=== PATIENT | male | born 1995 | race Caucasian/White ===

== ENCOUNTER 2023-01-23 09:41 | Outpatient (REF) | payer OTHER, SELFPAY ==
[2023-01-23 11:38] LABS: Mean Corpuscular HGB Conc 32.5 g/dl (31.0-36.0); Mean Corpuscular Hemoglobin 28.6 pg (27.0-33.0); Mean Corpuscular Volume 88.1 fL (80.0-98.0); Mean Platelet Volume 11.5 fL (9.4-12.4); Platelet Count 218 X10*3/uL (160-400); Red Blood Count 4.54 X10*6/uL (4.60-5.80); Red Cell Distribution Width 13.1 % (11.0-16.0); White Blood Count 3.8 X10*3/uL (4.8-10.8)
[2023-01-23 11:57] LABS: Anion Gap 11 (12-20); Blood Urea Nitrogen 13 mg/dL (9-16); C Reactive Protein 0.13 mg/dL (< or = 0.50); Calcium 9.3 mg/dL (8.4-10.2); Carbon Dioxide 26 mmol/L (22-29); Chloride 108 mmol/L (96-108); Estimated Glomerular Filt Rate > 60; Glucose Random 83 mg/dL (60-115); Potassium 4.3 mmol/L (3.3-5.1); Sodium 141 mmol/L (135-145)
[2023-01-23 12:22] LABS: Ferritin 63 ng/mL (20-250); TSH reflex Free T4 0.91 uIU/mL (0.32-4.0)
[2023-01-27 07:14] LABS: Immunoglobulin A 475 mg/dL (47-310)
[2023-01-27 09:58] LABS: Transglutaminase IgA <1.0 U/mL
== END 2023-01-23 09:42 | disposition home or self-care (01) ==
LOC: HO.LAB 09:41
PROVIDERS: PCP Nurse Practitioner Family; Visit Provider Internal Medicine
DX: R10.9 Unspecified abdominal pain (principal); R19.4 Change in bowel habit
CPT/HCPCS: 36415; 80048; 82728; 82784; 84443; 85027; 86140; 86364

== ENCOUNTER 2023-02-08 11:51 | Outpatient (REF) | payer OTHER, SELFPAY ==
[2023-02-16 20:38] LABS: Calprotectin, Fecal 203 mcg/g
== END 2023-02-08 11:52 | disposition home or self-care (01) ==
LOC: HO.LNP 11:51
PROVIDERS: Visit Provider Internal Medicine
DX: R19.4 Change in bowel habit (principal)
CPT/HCPCS: 83993

== ENCOUNTER → 2023-02-21 08:58 | Outpatient (BNVA) | payer OTHER, SELFPAY | PROVIDERS: PCP Nurse Practitioner Family; Visit Provider Internal Medicine | DX: R19.4 Change in bowel habit (principal); R10.9 Unspecified abdominal pain | CPT/HCPCS: 99212 ==

== ENCOUNTER 2023-03-16 11:05 | Day surgery (SDC) | payer OTHER, SELFPAY ==
[2023-03-14 15:44] VITALS: BMI 18.9
--- NOTE | 2023-03-16 11:12 | P.CONAN_ITS ---
[facility] Active Problems Active Problems: All Active Problems (Updated 03/14/23 @ 15:43 by Cora Duarte RN) Change in bowel habit (Acute) Abdominal pain (Acute) Past Medical History Medical History Abdominal pain Family history of colon cancer Family History Family History Maternal Uncle Colon cancer Prostate cancer Maternal Grandfather Colon cancer Surgical History Surgical History Surgical history unknown History of Problems with Anesthesia: No Social History Social History Household Members: Family Alcohol intake: current Alcohol intake frequency: holidays/special occasions only Tobacco use type: Cigarette Advance Directives: No Advance Directives Information Provided: Yes Meds Allergies Allergy/AdvReac Type Severity Reaction Status Date / Time No Known Allergies Allergy Verified 03/16/23 11:51 Home Medications Medication Instructions Recorded Confirmed Last Taken Type estradiol 0.1 mg/24 hr semiweekly 1 patch transdermal 2XW 01/23/23 03/16/23 Unknown History transdermal patch spironolactone 50 mg tablet 50 mg PO BID 02/21/23 03/16/23 Unknown History Exam Exam Date and Time: March 16, 2023 1112 Height,Weight and Vital Signs: Height 5 ft 7 in Weight 54.885 kg Assessment and Plan Assessment Anesthesia Assessment: Anesthesia Plan Discussed and Chart Reviewed Final Anesthetic Review History of Problems with Anesthesia: No NPO: Yes ASA Class: II Final Preanesthetic Review: Meds/Allgs Chart Reviewed, Consent Obtained/Reviewed and Anes Risks/Benef Reviewed Patient Risk: Low Procedure Risk: Intermediate Anesthetic Plan Anesthetic Plan: MAC: Disposition: Standard PACU
[2023-03-16 11:59] VITALS: BP 106/85; PULSE 76; RESP 16; TEMP 37.5; O2SAT 99; BMI 18.8
[2023-03-16] MEDS: Sodium Phosphate,Mono-Dibasic 133 ML ENEMA PR (12:05)
[2023-03-16] MEDS: Lactated Ringers 1,000 ML 100 ML IVCONT (12:23)
--- NOTE | 2023-03-16 12:27 | MHC.SHP ---
Pre-Procedural Eval Section A Date of Service: 03/16/23 The History & Physical has been completed within 30 days and I have reviewed it.: Yes Section B Chief Complaint: Noninfective gastroenteritis and colitis, Anemia Allergies: Allergies Allergy/AdvReac Type Severity Reaction Status Date / Time No Known Allergies Allergy Verified 03/16/23 11:51 Plan Diagnosis/Plan: Unchanged I have reviewed the history and physical and performed a pertinent physical examination on my patient. No changes have occurred unless specified. Time Spent With Patient Time: Total time managing care of this patient today ____ minutes.
--- NOTE | 2023-03-16 13:04 | P.OP_ITS ---
Operative Note Operative Note Date of Service: 03/16/23 Narrative: Procedure:?Esophagogastroduodenoscopy and colonoscopy Endoscopist:?Liv Ca MD Indication:?Abnormal CT scan, chronic diarrhea Anesthesia Provider:?Dr Ciera Tapia Anesthesia Type:?MAC Instrument:?Olympus GIF-H190, PCF-H190L EGD Procedure:?? The procedure, indications, preparation and potential complications were reviewed with the patient, who indicated understanding and gave written informed consent to proceed. A physical exam was performed. The endoscope was introduced through the mouth, and advanced to the second part of duodenum. The mucosa was carefully examined on slow withdrawal of the endoscope.? There were no immediate complications.? Patient tolerated the procedure well. EGD Findings:? * Esophagus:? Erosions noted at the GE junction with contact bleeding.?Z-line is at 38 cm. Cold forceps biopsies were taken from middle and lower esophagus rule out eosinophilic esophagitis. * Stomach:? Normal gastric mucosa. Retroflexion performed in the fundus. Pylorus appeared narrow but easily traversable with the scope. Random cold forceps biopsies were taken to rule out H pylori * Duodenum:? Normal duodenal mucosa to the extent visualised.? Cold forceps bio psies were taken to rule out celiac disease. * Colonoscopy Procedure:? The patient was then turned for the colonoscopy. A digital rectal exam was performed which was abnormal for anal fissure.? A distal attachment cap was affixed to the tip of the scope and the colonoscope was then inserted through the anus and advanced through the colon to the cecum at 70 cm and terminal ileum. Appendiceal orifice and ileocecal valve were identified. Mucosa was carefully examined under high definition white light as the instrument was slowly withdrawn in a retrograde panoramic fashion. Retroflexion was performed in rectum. The procedure was not difficult. There were no immediate obvious complications. The quality of the prep was BBPS: 3+2+3 = adequate Withdrawal time: 13 minutes Limitations: No limitation. Findings: Mucosa: Abnormal mucosa with exudates and erythema noted in rectum and distal sigmoid colon. Few aphthous erosions noted in the cecum. Terminal ileum was intubated to 20 cm and appeared normal. Cold forceps biopsies were taken for evaluation. Protruding lesions: * Medium internal hemorrhoids without stigmata of recent bleeding. Impression: 1. Esophagitis (biopsy) 2. Normal stomach (biopsy) 3. Normal duodenum (biopsy) 4. Normal colon and terminal ileum mucosa (biopsy) 5. ? Anal fissure - pt does not report any pain on defecation 6. Internal hemorrhoids Recommendations:?? * Await pathology results.? * Start Omeprazole 20mg once daily x 8 weeks * Resume asymptomatic CRC screening at 45 y.o or earlier if clinically indicated.
[2023-03-16 13:10] VITALS: BP 102/63; PULSE 75; RESP 16; TEMP 36.6; O2SAT 100
[2023-03-16 13:25] VITALS: BP 108/72; PULSE 62; RESP 16; O2SAT 100
[2023-03-16 13:40] VITALS: BP 119/77; PULSE 55; RESP 16; TEMP 36.6; O2SAT 100
== END 2023-03-16 14:58 | disposition home or self-care (01) ==
PROVIDERS: PCP Nurse Practitioner Family; Visit Provider Internal Medicine
PROC: (CPT 45380; principal; 2023-03-16 13:20)
DX: D64.9 Anemia, unspecified (principal); K20.90 Esophagitis, unspecified without bleeding; K60.2 Anal fissure, unspecified; K52.9 Noninfective gastroenteritis and colitis, unspecified; K29.80 Duodenitis without bleeding; K64.8 Other hemorrhoids; F17.210 Nicotine dependence, cigarettes, uncomplicated; Z80.0 Family history of malignant neoplasm of digestive organs; Z79.899 Other long term (current) drug therapy
CPT/HCPCS: 45380; 43239; 88305; 88342

== ENCOUNTER → 2023-03-16 11:05 | Outpatient (BNV) | payer OTHER, SELFPAY | PROVIDERS: PCP Nurse Practitioner Family; Visit Provider Internal Medicine | DX: K52.89 Other specified noninfective gastroenteritis and colitis (principal); R93.3 Abnormal findings on diagnostic imaging of other parts of digestive tract; K22.10 Ulcer of esophagus without bleeding; K64.8 Other hemorrhoids | CPT/HCPCS: 43239; 45380 ==

== ENCOUNTER 2023-05-02 08:28 | Outpatient (REF) | payer OTHER, SELFPAY ==
--- NOTE | ~2023-05-02 | CT_ITS ---
EXAMINATION: CT ENTEROGRAPHY ABDOMEN AND PELVIS WITH CONTRAST CLINICAL INFORMATION: Noninfective gastroenteritis and colitis COMPARISON: None available. TECHNIQUE: Study performed with oral VoLumen (1350 mL) and 480 mL of water to distend the abdomen. The patient was injected with 85 mL Omnipaque 350 intravenous contrast which was administered without adverse effect. Coronal and sagittal reformatted images were obtained at the technologist's workstation. This CT examination was performed using dose optimization techniques as appropriate, variously including the following: *Automated exposure control *Adjustment of mA and/or kV according to patient size (this includes techniques or standardized protocols for targeted exams where dose is matched to indication/reason for exam; i.e. extremities or head) *Use of iterative reconstruction technique DLP: 228 mGy-cm FINDINGS: GASTROINTESTINAL FINDINGS: Stomach: Well-distended and normal in appearance. Small intestine: Satisfactorily distended and normal in appearance. Large intestine: Well-distended and normal in appearance. No perirectal changes demonstrated. The appendix is normal. Additional findings: No abnormal enhancement of the vasa recta or significant mesenteric or retroperitoneal lymphadenopathy is seen. No abdominal abscess or fistulous tract demonstrated. ABDOMINAL AND PELVIC CT FINDINGS: Liver, gallbladder, biliary tract: Within normal limits Pancreas: Within normal limits Spleen: Incidental approximately 11 mm cyst posteriorly subcapsular location. Adrenal glands and kidneys: Within normal limits Ureters and bladder: Within normal limits Lymphovascular structures: Within normal limits Bones: Within normal limits Lung bases: Within normal limits CT/CT enterography IMPRESSION: No evidence for any active inflammatory bowel disease. Incidental splenic cyst.
[2023-05-02] MEDS: iohexoL 350 MG/ML 100 ML INFUS..BTL IV (10:35)
[2023-05-02] MEDS: Sorbitol/Mannit/Xanth Imaging 500 ML LIQUID 1500 ML PO (10:36)
== END 2023-05-02 08:29 | disposition home or self-care (01) ==
LOC: HO.CT 08:28
PROVIDERS: PCP Nurse Practitioner Family; Visit Provider Internal Medicine
DX: K52.9 Noninfective gastroenteritis and colitis, unspecified (principal); D64.9 Anemia, unspecified
CPT/HCPCS: 74177; Q9967

== ENCOUNTER 2023-05-14 11:02 | Outpatient (AMB) | payer OTHER, SELFPAY ==
--- NOTE | 2023-05-14 11:03 | A.OFFVIS_ITS ---
Intake Vital Signs 05/14/23 11:07 Height 5 ft 7 in Weight 123 lb 7.342 oz BMI 19.3 BP 121/74 Blood Pressure Location Lt brachial Position Sitting Pulse 80 Intake Visit Reasons: Discuss GI Concerns Intake Note: Angelica presents in the office as a f/u GI concerns. CC: States that she is still having all these symptoms with nothing coming up on the testing so she would like to know what to do moving forward. 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 01/23/23: Pt was seen in [facility] in November for abdominal pain and bloody diarrhea. Sx started after she had pizza from outside. Developed crampy abdominal pain with diarrhea that had bright red blood. This prompted visit to [facility] where she was noted to have colitis on CT Abd. Has had multiple episodes of abd pain with diarrhea in the past as well but not to this intensity. Occurs at least 3 times a year. Has not had any work up done for this, assumed it was stress related. No changes in appetite, unintentional weight loss. No fam hx of IBD or CRC in first degree relatives. 02/21/23: Labs reviewed with the pt - anemia noted with ferritin in normal range. Also has high fecal karen. celiac serology normal. Currently only complaint is intermittent R sided abdominal discomfort and constipation. No diarrhea, no blood in stool. 03/16/23: EGD/colo 1. Esophagitis (biopsy) 2. Normal stomach (biopsy) 3. Normal duodenum (biopsy) 4. Normal colon and terminal ileum mucos a (biopsy) 5. ? Anal fissure - pt does not report a ny pain on defecation 6. Internal hemorrhoids Path: A. Duodenum, biopsy: Chronic inactive duodenitis. B. Stomach, random, biopsy: Antral-type and oxyntic mucosa with mpderate chronic inactive inflammation; no Helicobacter organisms seen. C. Esophagus, lower, biopsy: Squamous epithelium within normal limits; no inflammation seen; negative for eosinophilic esophagitis. D. Esophagus, middle, biopsy: Squamous epithelium within normal limits; no inflammation seen; negative for eosinophilic esophagitis. E. Terminal ileum, biopsy: Terminal ileal mucosa within normal limits. F. Cecum, biopsy: Focally active colitis. G. Colon, ascending, biopsy: Colonic mucosa with mildly increased intraepithelial lymphocytes and mild crypt disarray. H. Colon, transverse, biopsy: Colonic mucosa within normal limits. I. Colon, descending, biopsy: Chronic inactive colitis. J. Colon, sigmoid, biopsy: Colonic mucosa with mild mucosal congestion; otherwise within normal limits. K. Rectum, biopsy: Rectal mucosa within normal limits. 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 No dysplasia or granulomata are seen 05/02/23: CT enterography: No evidence for any active inflammatory bowel disease. Incidental splenic cyst. 05/14/23: Seen in office today for discussion of results. Reviewed EGD/colo results along with enterography. Pt is mostly concerned re recurrent episodes of abd pain with bleeding. [facility] Medical History (Updated 05/14/23 @ 11:21 by Liv Ca MD) Family history of colon cancer Abdominal pain Surgical History (Updated 05/14/23 @ 11:08 by CONSTANZA Baker) Hx of colonoscopy History of esophagogastroduodenoscopy (EGD) Surgical history unknown Family History Maternal Uncle Colon cancer Prostate cancer Maternal Grandfather Colon cancer Social History Household Members: Family Alcohol intake: current Alcohol intake frequency: a few times a week Patient Tobacco Use Status: Current someday Tobacco user Tobacco use type: Cigarette Review of Systems Const All systems reviewed & are unremarkable except as noted in HPI and below Physical Exam Vital Signs: Last Vital Signs Pulse 80 05/14/23 11:07 BP 121/74 05/14/23 11:07 BMI result Body Mass Index 19.3 Gen appear: NAD HEENT: nonicteric, no cervical lymphadenopathy Chest: CTA CVS: Regular S1/S2 Abd: soft, nontender, nondistended, bowel sounds + Ext: no peripheral edema Neuro: A/Ox3, noted to move all extremities spontaneously Psych: interacting appropriately Assessment & Plan Assessment & Plan (1) Anemia: Code(s): D64.9 - Anemia, unspecified (2) Change in bowel habit: Code(s): R19.4 - Change in bowel habit (3) Abdominal pain: Code(s): R10.9 - Unspecified abdominal pain Plan Discussed that although no active colitis noted, may have early or undifferentiated ibd given paneth cell metaplasia noted in descending colon. Other differential for her episodic abd pain with diarrhea would include recurrent GI infections, parasitic infection, mast cell, angioedema. Plan: - Labs ordered as below - Immunology referral placed - If work up negative as well, would consider PO uceris trial Follow up in 4 weeks Orders: Orders Tryptase 05/14/23 R19.4 - Change in bowel habit C1 Esterase Inhibitor 05/14/23 R19.4 - Change in bowel habit C1Q Complement Component 05/14/23 R19.4 - Change in bowel habit Ova and Parasite 05/14/23 R19.4 - Change in bowel habit C1 Inhibitor Protein 05/14/23 R19.4 - Change in bowel habit Complement C4 05/14/23 R19.4 - Change in bowel habit Referrals Allergy & Immunology Referral A09 - Infectious gastroenteritis and colitis, unspecified Coding Level of Care Code Est Pt Level 4 (95404) Diagnoses Anemia D64.9 Change in bowel habit R19.4 Abdominal pain R10.9
[2023-05-14 11:07] VITALS: BP 121/74; PULSE 80; BMI 19.3
== END 2023-05-14 11:26 | disposition home or self-care (01) ==
PROVIDERS: PCP Nurse Practitioner Family; Visit Provider Internal Medicine
DX: D64.9 Anemia, unspecified (principal); R19.4 Change in bowel habit; R10.9 Unspecified abdominal pain
CPT/HCPCS: 99214

== ENCOUNTER → 2023-05-14 11:02 | Outpatient (BNVA) | payer OTHER, SELFPAY | PROVIDERS: PCP Nurse Practitioner Family; Visit Provider Internal Medicine | DX: D64.9 Anemia, unspecified (principal); R19.4 Change in bowel habit; R10.9 Unspecified abdominal pain | CPT/HCPCS: 99212 ==